=== PATIENT | female | born 1960 | race Caucasian/White ===

== ENCOUNTER → 2017-06-29 | Outpatient (CLI) | payer BC ==
[~2017-06-29] MED LIST: B-12 100 MCG; FASTIN30 MG PO; FISH OIL 1000MG1 CAP PO; MULTIPLE VITAMI1 CAP PO; PHENTERMINE15 MG PO; ZESTRIL 20MG TA20 MG PO
== END ==
LOC: MC.RAD 16:40
DX: Z12.31 Encounter for screening mammogram for malignant neoplasm of breast (principal); N64.89 Other specified disorders of breast; N63.10 Unspecified lump in the right breast, unspecified quadrant

== ENCOUNTER → 2017-07-04 | Outpatient (CLI) | payer BC | LOC: MC.RAD 14:00 | DX: N63.11 Unspecified lump in the right breast, upper outer quadrant (principal); N60.01 Solitary cyst of right breast; N64.89 Other specified disorders of breast ==

== ENCOUNTER → 2017-07-12 | Outpatient (CLI) | payer BC | LOC: MC.RAD 10:00 | DX: N63.10 Unspecified lump in the right breast, unspecified quadrant (principal); N64.89 Other specified disorders of breast ==

== ENCOUNTER → 2018-07-26 | Outpatient (CLI) | payer BC ==
[~2018-07-26] VITALS: Ht 167.6 cm; Wt 86.4 kg
[~2018-07-26] MED LIST changes: +GINGER500 MG PO; +TUMERIC PO
[2018-07-26 11:43] VITALS: BP 114/76; PULSE 76
== END ==
LOC: LIGHT 10:44
DX: E88.81 Metabolic syndrome and other insulin resistance (principal); I10 Essential (primary) hypertension; E78.5 Hyperlipidemia, unspecified; E66.9 Obesity, unspecified; Z68.30 Body mass index [BMI] 30.0-30.9, adult; Z71.3 Dietary counseling and surveillance
CPT/HCPCS: G0463

== ENCOUNTER → 2018-08-30 | Outpatient (CLI) | payer BC ==
[~2018-08-30] VITALS: Ht 167.6 cm; Wt 85.5 kg
[2018-08-30 15:40] VITALS: BP 110/80; PULSE 60
== END ==
LOC: LIGHT 11:29
DX: E88.81 Metabolic syndrome and other insulin resistance (principal); E78.5 Hyperlipidemia, unspecified; I10 Essential (primary) hypertension; E66.3 Overweight; Z68.30 Body mass index [BMI] 30.0-30.9, adult; Z71.3 Dietary counseling and surveillance
CPT/HCPCS: G0463

== ENCOUNTER → 2019-09-05 | Outpatient (CLI) | payer BC | LOC: MC.RAD 07:30 | DX: Z12.31 Encounter for screening mammogram for malignant neoplasm of breast (principal); Z98.890 Other specified postprocedural states ==